=== PATIENT | female | born 1995 | race Caucasian/White ===

== ENCOUNTER 2019-02-21 17:02 | Emergency (ER) | payer SELFPAY ==
[~2019-02-21] VITALS: Ht 162.6 cm; Wt 66.0 kg
[2019-02-21 17:11] VITALS: BP 95/77
--- NOTE | 2019-02-21 17:23 | NUR ---
FIRST CONTACT WITH PT. PT STATES "WE WERE MOVING A BOX AND WERE MOVING IT UPSTAIRS. THE BOX LANDED ON MY LOWER LEG. I THINK IT'S BROKEN." PT TEARFUL. PT'S AOX4. RESPS EVEN AND UNLABORED. PA AT BEDSIDE TO EVALUATE AT THIS TIME.
[2019-02-21] MEDS ORDERED: HYDROcodone/APAP 5/325 TABLET ONE (17:27)
[2019-02-21] MEDS ORDERED: HYDROcodone/APAP 5/325 TABLET PO PRN (17:30)
--- NOTE | 2019-02-21 17:31 | NUR ---
PT MEDICATED PER [facility]. ICE PACK APPLIED AT THIS TIME.
--- NOTE | 2019-02-21 18:28 | NUR ---
Patient given discharge instructions and they have confirmed that they understand the instructions. CRUTCHES GIVEN AT DC. PT WHEELED TO DC.
== END 2019-02-21 18:30 | disposition home or self-care (01) ==
LOC: ED 18:05
DX: S80.12XA Contusion of left lower leg, initial encounter (principal); F17.200 Nicotine dependence, unspecified, uncomplicated; X58.XXXA Exposure to other specified factors, initial encounter; Y93.89 Activity, other specified; Y92.009 Unspecified place in unspecified non-institutional (private) residence as the place of occurrence of the external cause; Y99.8 Other external cause status
CPT/HCPCS: 99283

== ENCOUNTER 2019-08-06 22:31 | Emergency (ER) | payer MEDICAID, OTHER ==
[~2019-08-06] VITALS: Ht 162.6 cm; Wt 81.4 kg
[2019-08-06 22:38] VITALS: BP 118/80
--- NOTE | 2019-08-06 22:44 | NUR ---
pt ambulates from triage to room with steady gait
[2019-08-06] MEDS ORDERED: BUPIVACAINE 0.25% ONE (22:59)
[2019-08-06] MEDS ORDERED: LIDOCAINE-MPF 1%, 5ML ONE (22:59)
[2019-08-06] MEDS ORDERED: LIDOCAINE-MPF 1%, 5ML INFIL ONE (23:00)
[2019-08-06] MEDS ORDERED: BUPIVACAINE 0.25% INFIL ONE (23:00)
--- NOTE | 2019-08-06 23:43 | NUR ---
pt d/c with d/c summary. all questions answered. pt ambualtes to registration desk with steady gait for d/c home with partner. pt given copy of dental referral list and verbalizes understanding of f/u instructions. pt denies any other needs pertaining to this visit.
== END 2019-08-06 23:45 | disposition home or self-care (01) ==
LOC: ED 23:44
DX: K08.89 Other specified disorders of teeth and supporting structures (principal); R51 Headache; F17.210 Nicotine dependence, cigarettes, uncomplicated
CPT/HCPCS: 64400; 99284; 99406

== ENCOUNTER 2019-08-13 02:11 | Emergency (ER) | payer MEDICAID ==
[~2019-08-13] VITALS: Ht 162.6 cm; Wt 81.7 kg
[2019-08-13 02:16] VITALS: BP 117/72
--- NOTE | 2019-08-13 02:33 | NUR ---
PT TO ED WITH C/O LEFT LOWER DENTAL PAIN. REPORTS WISDOM TEETH ARE GROWING IN. REPORTS SEEING [facility] YESTERDAY AND THEY PRESCRIBED ABX. REPORTS APPT IN SEPTEMBER TO SEE THE DENTIST.
[2019-08-13] MEDS ORDERED: BUPIVACAINE 0.25% ONE (02:37)
[2019-08-13] MEDS ORDERED: HYDROcodone/APAP 5/325 TABLET ONE (02:42)
--- NOTE | 2019-08-13 02:55 | NUR ---
PT REPORTS SOME RELIEF FROM DENTAL BLOCK.
[2019-08-13] MEDS ORDERED: BUPIVACAINE 0.25% INFIL ONE (03:00)
[2019-08-13] MEDS ORDERED: HYDROcodone/APAP 5/325 TABLET PO ONE (03:00)
== END 2019-08-13 03:06 | disposition home or self-care (01) ==
LOC: ED 03:01
DX: K08.89 Other specified disorders of teeth and supporting structures (principal)
CPT/HCPCS: 64400; 99284; J3490; 64999

== ENCOUNTER 2019-08-20 20:43 | Emergency (ER) | payer MEDICAID ==
[~2019-08-20] VITALS: Ht 162.6 cm; Wt 80.9 kg
[2019-08-20 20:45] VITALS: BP 121/84
--- NOTE | 2019-08-20 20:52 | NUR ---
PT. REFUSED TO PUT ON GOWN.
[2019-08-20] MEDS ORDERED: HYDROcodone/APAP 5/325 TABLET ONE (21:11)
--- NOTE | 2019-08-20 21:21 | NUR ---
pt medicated per mar for pain.
[2019-08-20] MEDS ORDERED: HYDROcodone/APAP 5/325 TABLET PO ONE (21:30)
== END 2019-08-20 22:31 | disposition home or self-care (01) ==
LOC: ED 22:16
DX: K02.9 Dental caries, unspecified (principal); K08.89 Other specified disorders of teeth and supporting structures; F17.210 Nicotine dependence, cigarettes, uncomplicated
CPT/HCPCS: 99283

== ENCOUNTER 2019-09-17 23:18 | Emergency (ER) | payer MEDICAID ==
[~2019-09-17] VITALS: Ht 162.6 cm; Wt 8.5 kg
[2019-09-17 23:27] VITALS: BP 136/86
[2019-09-18] MEDS ORDERED: BUPIVACAINE 0.25% INFIL ONE (00:30)
[2019-09-18] MEDS ORDERED: LIDOCAINE 1%, 2ML INFIL ONE (00:30)
[2019-09-18] MEDS ORDERED: LIDOCAINE-MPF 1%, 2ML ONE (00:54)
[2019-09-18] MEDS ORDERED: BUPIVACAINE 0.25% ONE (00:54)
--- NOTE | 2019-09-18 00:58 | NUR ---
Break rn:pa at bedside to recheck pt.
== END 2019-09-18 01:24 | disposition home or self-care (01) ==
LOC: ED 09-18 01:07
DX: K02.9 Dental caries, unspecified (principal); K08.89 Other specified disorders of teeth and supporting structures; R51 Headache; F17.210 Nicotine dependence, cigarettes, uncomplicated; Z72.9 Problem related to lifestyle, unspecified
CPT/HCPCS: 64400; 99284; 99406

== ENCOUNTER 2019-10-11 20:17 | Emergency (ER) | payer MEDICAID ==
[~2019-10-11] VITALS: Ht 162.6 cm; Wt 80.3 kg
[2019-10-11 20:23] VITALS: BP 121/81
[2019-10-11] MEDS ORDERED: LIDOCAINE-MPF 1%, 2ML ONE (20:49)
[2019-10-11] MEDS ORDERED: LIDOCAINE-MPF 1%, 2ML INFIL ONE (21:00)
[2019-10-11] MEDS ORDERED: LIDOCAINE 1%, 10ML INFIL ONE (21:00)
[2019-10-11] MEDS ORDERED: BUPIVACAINE/PF 0.5% ONE (21:15)
== END 2019-10-11 21:29 | disposition home or self-care (01) ==
LOC: ED 20:30
DX: K01.1 Impacted teeth (principal); K08.89 Other specified disorders of teeth and supporting structures; F17.210 Nicotine dependence, cigarettes, uncomplicated
CPT/HCPCS: 64400; 99284; 99406

== ENCOUNTER 2020-04-15 16:28 | Emergency (ER) | payer MEDICAID ==
[~2020-04-15] VITALS: Ht 165.1 cm; Wt 80.0 kg
--- NOTE | 2020-04-15 17:09 | NUR ---
Pt reports headache and changes in vision in left eye started about 2 hrs ago.
[2020-04-15] MEDS ORDERED: KETOROLAC 30 MG/1 ML ONE (17:27)
[2020-04-15] MEDS ORDERED: METOCLOPRAMIDE 5 MG/ML, 2ML ONE (17:27)
[2020-04-15] MEDS ORDERED: METOCLOPRAMIDE 5 MG/ML, 2ML IM ONE (17:30)
[2020-04-15] MEDS ORDERED: KETOROLAC 30 MG/1 ML IM ONE (17:30)
[2020-04-15 17:56] LABS: ALBUMIN 3.9 g/dL (3.4-5.0); ANION GAP 5 mmol/L (5-15); CHLORIDE 109 mmol/L (98-107); CREATININE 0.86 mg/dL (0.55-1.02)
[2020-04-15 17:57] LABS: BASOPHILS % (AUTO) 1 % (0-1); EOSINOPHILS % (AUTO) 3 % (1-7); LYMPHOCYTES % (AUTO) 27 % (22-44); MEAN CORPUSCULAR HEMOGLOBIN 31.3 pg (27.0-34.8); MEAN CORPUSCULAR HGB CONC 34.8 g/dL (32.4-35.8); MONOCYTES % (AUTO) 5 % (2-9); NEUTROPHILS % (AUTO) 65 % (42-75); PLATELET COUNT 301 x10^3/uL (130-400); RED BLOOD COUNT 4.59 x10^6/uL (3.82-5.3); RED CELL DISTRIBUTION WIDTH 12.9 % (9.6-15.2)
[2020-04-15 18:09] LABS: MD NO
[2020-04-15 19:53] VITALS: BP 118/68
== END 2020-04-15 19:55 | disposition home or self-care (01) ==
LOC: ED 17:00
DX: G43.109 Migraine with aura, not intractable, without status migrainosus (principal); H53.8 Other visual disturbances
CPT/HCPCS: 36415; 70450; 80048; 82040; 82962; 85025; 96372; 99284; J1885; J2765

== ENCOUNTER 2020-08-11 09:53 | Emergency (ER) | payer MEDICAID ==
[~2020-08-11] VITALS: Ht 162.6 cm; Wt 85.5 kg
[2020-08-11 09:59] VITALS: BP 104/74
== END 2020-08-11 10:19 | disposition left against medical advice (07) ==
LOC: ED 10:13
DX: M79.661 Pain in right lower leg (principal); Z53.21 Procedure and treatment not carried out due to patient leaving prior to being seen by health care provider